=== PATIENT | male | born 1965 | race African-American/Black ===

== ENCOUNTER 2017-10-29 04:01 | Emergency (ER) | payer MEDICAID, OTHER ==
[~2017-10-29] VITALS: Ht 172.7 cm; Wt 86.6 kg
[2017-10-29 05:52] VITALS: BP 109/62
[2017-10-29] MEDS ORDERED: KETOROLAC TROMETH 60MG/2ML VIAL IM ONE (07:15)
== END 2017-10-29 08:09 | disposition home or self-care (01) ==
LOC: ER 04:22
DX: S93.491A Sprain of other ligament of right ankle, initial encounter (principal); W18.39XA Other fall on same level, initial encounter; Y93.89 Activity, other specified; Y99.8 Other external cause status; Y92.89 Other specified places as the place of occurrence of the external cause
CPT/HCPCS: 73610; 96372; 99284; J1885

== ENCOUNTER 2020-07-26 17:26 | Emergency (ER) | payer OTHER, MEDICAID ==
[~2020-07-26] VITALS: Ht 170.2 cm; Wt 81.6 kg
[2020-07-26 17:32] VITALS: BP 140/77
== END 2020-07-26 20:16 | disposition left against medical advice (07) ==
LOC: ER 17:28
DX: M25.531 Pain in right wrist (principal); Z53.21 Procedure and treatment not carried out due to patient leaving prior to being seen by health care provider
CPT/HCPCS: 73110